=== PATIENT | female | born 1985 | race Hispanic/Latino ===

== ENCOUNTER 2024-03-30 18:40 | Emergency (ER) | payer BC, OTHER ==
[2024-03-30] MEDS ORDERED: NA CHLORIDE 0.9% 1,000 ML ONE (19:24)
[2024-03-30] MEDS ORDERED: ONDANSETRON 4 MG/2 ML VIAL ONE (19:24)
[2024-03-30] MEDS ORDERED: FAMOTIDINE 20 MG/2 ML VIAL IV ONE (19:24)
[2024-03-30] MEDS ORDERED: KETOROLAC 30 MG/ML INJ ONE (19:24)
[2024-03-30 19:30] LABS: Absolute Eosinophils 0.2 K/uL (0-0.5); Absolute Lymphocytes (CBC) 2.7 K/uL (0.7-4.9); Absolute Monocytes 0.6 K/uL (0.1-1.3); Absolute Neutrophil 5.4 K/uL (1.8-8.0); Basophils % 0.2 % (0-1.3); Eosinophils % 2.3 % (0-4.4); Hematocrit 38.5 % (36.0-45.0); Lymphocytes % 29.9 % (15.3-44.8); MCH 30.9 pg (27.0-35.0); MCHC 33.7 g/dL (32.0-36.0); MCV 91.7 fL (80-100); MPV 8.2 fL (7.6-11.3); Monocytes % 6.6 % (3.3-12.3); Nucleated Red Blood Cells % 0.1 % (0-0); Platelets 246 thou/uL (152-406); Red Cell Distribution Width 13.5 % (12.1-15.2)
[2024-03-30 19:45] LABS: ALT/SGPT 19 U/L (13-56); Albumin 3.8 g/dL (3.4-5.0); Alkaline Phosphatase 63 U/L (45-117); Anion Gap 6.7 mEq/L (5.0-15.0); BUN Blood Urea Nitrogen 11 mg/dL (7-18); Bicarbonate 27 mEq/L (21-32); Bilirubin Total 0.6 mg/dL (0.2-1.0); Globulin 3.8 g/dL (2.3-3.5); Glomerular Filtration Rate 87 ml/min (=/>90); Glucose Level 91 mg/dL (74-106); Lipase 56 U/L (13-75); Potassium 3.7 mEq/L (3.5-5.1); Protein, Total 7.6 g/dL (6.4-8.2); Sodium Level 137 mEq/L (136-145)
[2024-03-30 20:06] LABS: AST/SGOT < 10 U/L (15-37); Troponin High Sensitivity < 3.0 pg/mL (<58.9)
--- NOTE | 2024-03-30 20:20 | RAD REPORT ---
EXAM DESCRIPTION: US - Abdomen Exam Limited - 03/30/2024 7:47 pm CLINICAL HISTORY: Abdominal pain. COMPARISON: None. FINDINGS: The gallbladder wall is not thickened. A gallstone is not seen. The biliary tree is normal caliber. IMPRESSION: Unremarkable gallbladder ultrasound.
--- NOTE | 2024-03-30 20:20 | RAD REPORT ---
EXAM DESCRIPTION: Serina Single View03/30/2024 7:59 pm CLINICAL HISTORY: Chest pain COMPARISON: none FINDINGS: The lungs appear clear of acute infiltrate. The heart is normal size IMPRESSION: No acute abnormalities displayed
--- NOTE | 2024-03-30 22:23 | EDPHYS ---
Physician Documentation [facility] Name: Angela Aguilar Age: 38 yrs Sex: Female : 1985 Arrival Date: 03/30/2024 Time: 18:40 Bed 13 Private MD: ED Physician Samson Baxter HPI: 03/30 22:22 This 38 yrs old Female presents to ER via Ambulatory with complaints of Chest kb Pain. 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 Last tetanus immunization: > 10 years ago Flu vaccine is not up to date. - Infectious Disease History:: Denies. - Social history:: Smoking status: Patient denies any tobacco usage or history of. Patient uses alcohol, only on a social basis. Patient/guardian denies using street drugs. ROS: 20:55 Constitutional: As per HPI kb Exam: 20:54 Constitutional: This is a well developed, well nourished patient who is awake, alert, kb and in no acute distress. Head/Face: Normocephalic, atraumatic. ENT: Moist Mucous membranes Cardiovascular: Regular rate Respiratory: Respirations even and unlabored. No increased work of breathing. Talking in full sentences Abdomen/GI: Soft, non-tender. No distention Skin: Warm, dry with normal turgor. Normal color. MS/ Extremity: Pulses equal, no cyanosis. Neurovascular intact. Full, normal range of motion. Neuro: Awake and alert, GCS 15, oriented to person, place, time, and situation. Moves all extremities. Normal gait. 20:54 Chest/axilla: Palpation: tenderness, that is mild, of the xiphoid area and mid-sternal area, 20:54 ECG was reviewed by the Attending Physician. Vital Signs: 19:00 BP 115 / 71; Pulse 68; Resp 16; Temp 98.2; Pulse Ox 100% on R/A; Weight 60.33 kg; pf1 Height 5 ft. 4 in. ; Pain 7/10; 20:00 BP 115 / 78; Pulse 71; Resp 16; Pulse Ox 99% on R/A; me1 21:00 BP 108 / 76; Pulse 77; Resp 16; Pulse Ox 99% on R/A; me1 22:38 BP 111 / 62; Pulse 66; Resp 16; Pulse Ox 97% on R/A; me1 19:00 Body Mass Index 22.83 (60.33 kg, 162.56 cm) pf1 19:00 Pain Scale: Adult pf1 MDM: 18:48 Patient medically screened. kb 20:55 ED course: HEART score 0. kb 22:22 Data reviewed: vital signs, nurses notes. kb 22:22 Differential diagnosis: abnormal EKG, acute myocardial infarction, coronary artery kb disease chest wall pain, cholecystitis, Cholelithiasis gastroesophageal reflux disease (GERD). Counseling: I had a detailed discussion with the patient and/or guardian regarding the historical points, exam findings, and any diagnostic results supporting the discharge/admit diagnosis, lab results, radiology results, the need for outpatient follow up, a family practitioner, to return to the emergency department if symptoms worsen or persist or if there are any questions or concerns that arise at home. 03/30 19:05 Order name: CBC with Diff; Complete Time: 19:46 kb 03/30 19:05 Order name: CMP; Complete Time: 20:10 kb 03/30 19:05 Order name: Lipase; Complete Time: 20:10 kb 03/30 19:05 Order name: Troponin HS; Complete Time: 20:10 kb 10 20:54 Order name: Troponin High Sensitivity; Complete Time: 22:22 kb 03/30 19:05 Order name: Abdomen Limited US; Complete Time: 20:21 kb 03/30 19:05 Order name: XRAY Chest (1 view); Complete Time: 20:21 kb 03/30 19:05 Order name: IV Saline Lock; Complete Time: 19:22 kb 03/30 19:05 Order name: Labs collected and sent; Complete Time: 19:22 kb 03/30 19:05 Order name: EKG - Nurse/Tech; Complete Time: 19:17 kb EC:54 Rate is 64 beats/min. Rhythm is regular. QRS Holland is Normal. DC interval is normal at kb 104 msec. QRS interval is normal at 76 msec. QT interval is normal at 404 msec. Administered Medications: 19:30 Drug: NS 0.9% IV 1000 ml IV at 1 bolus Per protocol; 1000 mL bolus Route: IV; Rate: 1 me1 bolus; Site: right antecubital; 22:47 Follow up: IV Status: Completed infusion me1 19:30 Drug: Famotidine IVP 20 mg IVP once; dilute with 10 mL 0.9% NaCl; give over 2 minutes me1 Route: IVP; Site: right antecubital; 22:46 Follow up: Response: No adverse reaction me1 19:30 Drug: TORadol - Ketorolac IVP 15 mg IVP once Route: IVP; Site: right antecubital; me1 22:47 Follow up: Response: No adverse reaction; Pain is decreased me1 19:30 Drug: Ondansetron IVP 4 mg IVP once; over 2 minutes Route: IVP; Site: right antecubital;me1 22:47 Follow up: Response: No adverse reaction; Nausea is decreased me1 Disposition Summary: 03/30/24 22:22 Discharge Ordered Notes: Location: Home kb Condition: Stable kb Diagnosis - Chest pain, unspecified kb Followup: kb - With: Emergency Department - When: As needed - Reason: Worsening of condition Followup: kb - With: Private Physician - When: 2 - 3 days - Reason: Recheck today's complaints, Continuance of care, Re-evaluation by your physician Discharge Instructions: - Discharge Summary Sheet kb - Nonspecific Chest Pain, Adult, [id number] kb Forms: - Medication Reconciliation Form kb - Antibiotic Education kb - Prescription Opioid Use kb - Patient Portal Instructions kb - Leadership Thank You Letter kb Signatures: Dispatcher [employer] Machelle Starr, MATERIAL PROCESSOR-C MATERIAL PROCESSOR-Arlin Ware, DOMINGA RN pf1 Darya Garber, DOMINGA RN me1 Corrections: (The following items were deleted from the chart) 19:05 19:05 Chest Single View+RAD.[email or web address] ordered. EDNY PAMELA
--- NOTE | 2024-03-30 22:23 | ER ---
Nurse's Notes [facility] Name: Angela Aguilar Age: 38 yrs Sex: Female : 1985 Arrival Date: 03/30/2024 Time: 18:40 Bed 13 Private MD: Diagnosis: Chest pain, unspecified Presentation: 03/30 19:00 Chief complaint: Patient states: substernal constant chest pressure pain of 7,onset me1 yesterday. 19:00 Coronavirus screen: Vaccine status: Patient reports being unvaccinated. Client denies pf1 travel out of the [place] in the last 14 days. At this time, the client does not indicate any symptoms associated with coronavirus-19. Ebola Screen: Patient negative for fever greater than or equal to 101.5 degrees Fahrenheit, and additional compatible Ebola Virus Disease symptoms. Initial Sepsis Screen: Does the patient meet any 2 criteria? No. Patient's initial sepsis screen is negative. Does the patient have a suspected source of infection? No. Patient's initial sepsis screen is negative. Risk Assessment: Do you want to hurt yourself or someone else? Patient reports no desire to harm self or others. Onset of symptoms was March 29, 2024. 19:00 Method Of Arrival: Ambulatory pf1 19:00 Acuity: PARESH 2 pf1 Triage Assessment: 19:00 General: Appears in no apparent distress. comfortable, well groomed, well developed, pf1 Behavior is calm, cooperative, appropriate for age, quiet. 19:00 Pain: Complains of pain in chest Pain currently is 7 out of 10 on a pain scale. pf1 Cardiovascular: Reports chest pain, Capillary refill < 3 seconds Patient's skin is warm and dry. 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 Last tetanus immunization: > 10 years ago Flu vaccine is not up to date. - Infectious Disease History:: Denies. - Social history:: Smoking status: Patient denies any tobacco usage or history of. Patient uses alcohol, only on a social basis. Patient/guardian denies using street drugs. Screenin:32 [facility] ED Fall Risk Assessment (Adult) History of falling in the last 3 months, me1 including since admission No falls in past 3 months (0 pts) Confusion or Disorientation No (0 pts) Intoxicated or Sedated No (0 pts) Impaired Gait No (0 pts) Mobility Assist Device Used No (0 pt) Altered Elimination No (0 pt) Score/Fall Risk Level 0 - 2 = Low Risk Maintained a safe environment, Provided non-skid footwear, Hourly rounding (assess needs \T\ fall precautionary measures) done. Abuse screen: Denies threats or abuse. Nutritional screening: No deficits noted. Tuberculosis screening: No symptoms or risk factors identified. Assessment: 19:32 General: Appears uncomfortable, well groomed, well developed, well nourished, Behavior me1 is calm, cooperative, appropriate for age, Reports substernal constant chest pressure pain of 8,onset yesterday. Intermittent nausea reported as well. Pain: Complains of pain in chest Pain does not radiate. Pain currently is 8 out of 10 on a pain scale. Quality of pain is described as pressure, Pain began suddenly, 1 day ago. Is continuous. Neuro: Level of Consciousness is awake, alert, obeys commands, Oriented to person, place, time, situation, Appropriate for age. Cardiovascular: Capillary refill < 3 seconds Patient's skin is warm and dry. Respiratory: Airway is patent Respiratory effort is even, unlabored, Respiratory pattern is regular, symmetrical. GI: Reports nausea. : No signs and/or symptoms were reported regarding the genitourinary system. EENT: No signs and/or symptoms were reported regarding the EENT system. Derm: Skin is intact, is healthy with good turgor, Skin is pink, warm \T\ dry. Musculoskeletal: No signs and/or symptoms reported regarding the musculoskeletal system. Vital Signs: 19:00 BP 115 / 71; Pulse 68; Resp 16; Temp 98.2; Pulse Ox 100% on R/A; Weight 60.33 kg; pf1 Height 5 ft. 4 in. ; Pain 7/10; 20:00 BP 115 / 78; Pulse 71; Resp 16; Pulse Ox 99% on R/A; me1 21:00 BP 108 / 76; Pulse 77; Resp 16; Pulse Ox 99% on R/A; me1 22:38 BP 111 / 62; Pulse 66; Resp 16; Pulse Ox 97% on R/A; me1 19:00 Body Mass Index 22.83 (60.33 kg, 162.56 cm) pf1 19:00 Pain Scale: Adult pf1 ED Course: 18:45 Patient arrived in ED. mg5 18:47 Machelle Coughlin FNP-C [facility]. kb 18:47 Samson Baxter MD is Attending Physician. kb 19:05 Triage completed. pf1 19:09 Darya Garber, DOMINGA is Primary Nurse. me1 19:17 EKG done, by ED staff, reviewed by Machelle [place]. pf1 19:22 CBC with Diff Sent. me1 19:22 CMP Sent. me1 19:22 Lipase Sent. me1 19:22 Initial lab(s) drawn, by va, sent to lab. Inserted saline lock: 22 gauge in right va1 antecubital area, using aseptic technique. 19:32 No provider procedures requiring assistance completed. O2 via room air. me1 19:32 Patient has correct armband on for positive identification. Bed in low position. Call [facility] light in reach. Side rails up X 1. Provided Education on: POC. Verbalized understanding. . Client placed on continuous cardiac and pulse oximetry monitoring. NIBP monitoring applied. panel monitor on. Pulse ox on. NIBP on. 19:32 Arm band placed on Patient placed in an exam room. me1 19:49 Abdomen Limited US In Process Unspecified. EDMS 20:01 XRAY Chest (1 view) In Process Unspecified. EDMS 21:34 Troponin High Sensitivity Sent. me1 22:45 IV discontinued, intact, bleeding controlled, No redness/swelling at site. Pressure me1 dressing applied. Administered Medications: 19:30 Drug: NS 0.9% IV 1000 ml IV at 1 bolus Per protocol; 1000 mL bolus Route: IV; Rate: 1 me1 bolus; Site: right antecubital; 22:47 Follow up: IV Status: Completed infusion me1 19:30 Drug: Famotidine IVP 20 mg IVP once; dilute with 10 mL 0.9% NaCl; give over 2 minutes me1 Route: IVP; Site: right antecubital; 22:46 Follow up: Response: No adverse reaction me1 19:30 Drug: TORadol - Ketorolac IVP 15 mg IVP once Route: IVP; Site: right antecubital; me1 22:47 Follow up: Response: No adverse reaction; Pain is decreased me1 19:30 Drug: Ondansetron IVP 4 mg IVP once; over 2 minutes Route: IVP; Site: right antecubital;me1 22:47 Follow up: Response: No adverse reaction; Nausea is decreased me1 Medication: 19:32 VIS not applicable for this client. me1 Outcome: 22:22 Discharge ordered by . jonel 22:45 Discharged to home ambulatory, with family, me1 22:45 Condition: stable 22:45 Discharge instructions given to patient, family, Instructed on discharge instructions, follow up and referral plans. Demonstrated understanding of instructions, follow-up care, 22:48 Patient left the ED. me1 Signatures: Dispatcher [employer] EDMachelle Suh, EMRE-C CORK PRESSING MACHINE OPERATOR-Arlin Ware RN RN pf1 Darya Garber RN RN me1 Carmenza Parker mg5 Corrections: (The following items were deleted from the chart) 19:17 19:15 Triage completed. pf1 pf1 19:32 19:00 Chief complaint: Patient states: substernal constant chest pressure pain of me1 7,onset yesterday. pf1
[2024-03-30 23:11] VITALS: BP 111/62; TEMP 98.2; O2SAT 97
--- NOTE | 2024-04-02 13:25 | EKG ---
Test Date: 2024-03-30 Test Time: 19:07:19 Naphthalene Operator: SCOTT MEASUREMENT RESULTS: Intervals: Rate: 64 DC: 104 QRSD: 76 QT: 392 QTc: 404 Whitman: P: 6 DC: 104 QRS: 56 T: 47 INTERPRETIVE STATEMENTS: Sinus rhythm with short DC Low voltage QRS Nonspecific ST abnormality Abnormal ECG Compared to ECG 05/28/2009 21:32:18 Low QRS voltage now present ST (T wave) deviation now present Electronically Signed On 04-02-24 13:18:28 CDT by Dilip Mack
== END 2024-03-30 22:48 | disposition home or self-care (01) ==
LOC: ER 18:40
DX: R07.9 Chest pain, unspecified (principal); Z28.310 Unvaccinated for COVID-19
CPT/HCPCS: 96361; 85025; 36415; 84484 ×2; 83690; 80053; 71045; 76705; 96375; 96374; 99285; J2405; J7030; 93005